=== PATIENT | female | born 1980 | race Caucasian/White ===

== ENCOUNTER 2023-12-09 11:57 | Emergency (ER) | payer OTHER ==
[2023-12-09 12:05] VITALS: BP 118/82; PULSE 84; RESP 18; TEMP 98.6; BMI 25.4
[2023-12-09] MEDS ORDERED: LIDOCAINE VISCOUS 2% ORAL/TOP 15 ML UNIT-DOSE CUP ONE (14:49)
[2023-12-09] MEDS: LIDOCAINE VISCOUS 2% ORAL/TOP 15 ML UNIT-DOSE CUP MM ONE (15:01)
== END 2023-12-09 16:52 | disposition home or self-care (01) ==
LOC: JER 11:57
DX: S10.10XA Unspecified superficial injuries of throat, initial encounter (principal); R07.0 Pain in throat; X58.XXXA Exposure to other specified factors, initial encounter
CPT/HCPCS: 70360-TC-FY; 70490-TC; 99284-25